=== PATIENT | female | born 1980 | race Caucasian/White ===

== ENCOUNTER → 2016-11-12 | Outpatient (CLI) | payer BC ==
--- NOTE | 2016-11-12 10:25 | US ---
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 As you know she is a 36 year-old 4, para 2101. He r due date is 03/28/17 which is based on L/early u/s. Her current gestational age based on this datin g is 20 weeks 4 days. She was seen previously for prior . She reports normal NIPT/AFP in yo office. Number of fetuses: 1 Placental location: right lateral Cord Insertion: Central presentation: vertex Cervix: 3.9 cm MVP: 4.7 cm The adnexa were evaluated. No pathology was seen. Right ovary seen Left ovary seen Measurements: Biparietal diameter: 45 mm 21 weeks, 1 days Head circumference: 180 mm 20 weeks, 3 days Abdominal circumference: 149 mm 20 weeks, 2 days Femur length: 35 mm 21 weeks, 0 days Humerus length: 33 mm 21 weeks, 0 days Transcerebellar diameter: 22 mm 20 weeks, 4 days Average ultrasound age: 20 weeks, 5 days Estimated weight: 361 gm weight percentile: 44 % ANATOMY Upper extremities: Normal Lower extremities: Normal Supratentorial brain: Normal Lateral ventricle: 5.1 mm Posterior fossa: Normal Cisterna Magna: 2.8 mm Spine: Normal Nuchal fold: 4.5 mm Face: Normal nose, lip, profile, alveolar ridge Heart: Normal rate, rhythm, axis, 4 chamber view, LVOT, RVOT, IVS Stomach: Normal Diaphragm: Normal Umbilical cord insertion: Normal Right kidney: Normal Left kidney: Normal Bladder: Normal Number of cord vessels: Three. Impression: This is a 36 year-old 4, para 2101 at 20 weeks, 4 days gestation. 1. SIUP with biometry cw ga of 20 weeks. Nl MVP. No anatomic abnormalites noted. 2. AMA_ AMA - normal NIPT, I reviewed the detection rate and chromosomes for NIPT and the option of a mniocentesis as well. She declined amniocentesis today, understanding the limitations of NIPT and ult rasound in detection of aneuploidy and other syndromes. 3. Prior CMV affected fetus s/p TOP- no ultrasound concern for recurrence and no clinical symptoms, s he declined amnio for CMV today. We discussed a 30 week growth/reevaluation of anatomy. 4. Prior late gestation TOP and D&C for retained POC- we reviewed that the data of cervical insuffici ency in the setting is overall reassuring but given multiple recent procedures it would be reasonable for her to undergo cervical lengths at 22 and 24 weeks to ensure normal without need for cerclage. C ervix today was very reassuring. Thank you for allowing me to see your patient. Approximately 15 minutes was spent with the patient a nd 15 was spent discussing her issues. Shira Ware MD Diagnosis Division of Maternal Medicine Department of Obstetrics and Gynecology [facility]
--- NOTE | 2016-11-12 10:59 | US ---
OB Sonogram History: LILLIAM 03/28/2017, 20 weeks 4 days, check growth and anatomy, advanced maternal age Comparison: None Findings: There is a single viable intrauterine gestation in vertex presentation. The placenta is rig ht lateral without evidence of previa. The lower margin of the placenta is 6 cm above the internal os . The umbilical cord inserts normally into the placenta. The cervix is closed measuring 3.8 cm transa bdominally. There is a normal amount of amniotic fluid with the maximum pocket measuring 4.7 cm. Both maternal ovaries are visualized and appear normal. The intracranial contents, face and spine look normal. The heart is 4 chamber ed and has a rate of approximately beats per minute. The right and left ventricular outflow tracts an d interventricular septum look normal. Fluid is identified in the stomach and urinary reshma dder. The renal region looks normal. The umbilical cord has 3 vessels and a normal insertion si te. 4 extremities are visualized. BPD = 15 mm = 21 weeks 1 day head circumference = 180 mm = 20 weeks 3 days Abdominal circumference = 149 mm = 20 weeks 2 days Femur length = 35 mm = 21 weeks 0 days Humeral length = 33 mm = 21 weeks 0 days Cerebellar width = 22 mm = 20 weeks 4 days Cisterna magna = 2.8 mm Estimated weight = 361 g = 44 percentile Average gestational age by ultrasound = 20 weeks 5 days Ultrasound LILLIAM 03/27/2017 Impression: Size consistent with dates. The cervix is normal in length and closed. This report should be read in conjunction with a consultation by Dr. Shira Ware.
== END ==
LOC: FIMAGING 08:24
PROVIDERS: ATTEND Obstetrics & Gynecology
DX: O09.522 Supervision of elderly multigravida, second trimester (principal); Z3A.20 20 weeks gestation of pregnancy

== ENCOUNTER 2018-11-01 21:16 | Emergency (ER) | payer OTHER ==
[2018-11-01] MEDS ORDERED: NS 1,000 ML IV ONE (21:46)
[2018-11-01] MEDS ORDERED: ONDANSETRON 4 MG/2 ML VIAL IVP ONE (21:46)
[2018-11-01] MEDS ORDERED: FAMOTIDINE 20 MG/NACL 50 ML IV ONE (21:46)
[2018-11-01 21:48] LABS: PLATELET COUNT 257 10^3/uL (150-400)
[2018-11-01] MEDS ORDERED: PANTOPRAZOLE SODIUM 40 MG TAB PO ONE (22:55)
--- NOTE | 2018-11-01 22:59 | EDPHY ---
H & P Time Seen by Provider: 11/01/18 21:26 HPI/ROS: HPI Upper abdominal pain. Nausea. 38-year-old female by private vehicle with her friend. 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 She reports worsening mid epigastric pain with associated nausea since earlier this afternoon. The pain is described as a burning and cramping sensation in her epigastric area. She reports earlier in the week she had flu- like symptoms which consisted of fatigue some muscle aches and joint aches. She denies any vomiting. She denies any diarrhea. No bloody or melenic stool. She has not had this pain in the past. She does take NSAIDs, ibuprofen on a fairly regular basis. ROS: Constitutional: No fever, no chills. No weakness. Respiratory: No cough. No shortness of breath. Cardiac: No chest pain, no palpitations. Gastrointestinal: As above, no vomiting, no diarrhea. Genitourinary: No hematuria. No dysuria or increased frequency with urination. Musculoskeletal: No back pain. No neck pain. As above. Skin: No rashes. Neurological: No headache. No focal weakness or altered sensation. Past medical history: No significant past medical history. No prescription medications. Social history: Nonsmoker. No alcohol. She is here with her friend who is an internal medicine veterinary specialist. As above. Physical Exam: General Appearance: Alert, she is not distressed. This patient is responding to questions appropriately and in full sentences. This patient appears well- hydrated and well-nourished. Eyes: Pupils equal and round no pallor or injection. No lid edema, erythema or injection. Respiratory: There are no retractions, lungs are clear to auscultation with good air movement bilaterally. Cardiovascular: Regular rate and rhythm. No murmur. Gastrointestinal: Abdomen is soft with vague epigastric tenderness on palpation , no masses, bowel sounds normal. No focal tenderness at McBurney's point. No Chadwick sign. Neurological: Motor sensory function is grossly intact. Cranial nerves are normal. Gait is normal. Skin: Warm and dry, no rashes. Musculoskeletal: No CVA tenderness on palpation bilaterally. Extremities are symmetrical. All joints range without pain or impingement. Psychiatric: No agitation. No depression. Database: EKG: Imaging: Right upper quadrant ultrasound: This is a normal study. The liver, ductal system, gallbladder all normal. The aorta is normal. The pancreas is normal. Results were discussed with staff radiologist Dr. Deny Aguayo. Procedures: Emergency department course: Triage vital signs reviewed and are normal. After my evaluation I did discuss pain medication with the patient. She does not want this at this time. She was given 20 mg of IV Pepcid and 4 mg of IV Zofran. 10:50 p.m., the patient was re-evaluated, she is feeling much better at this time. Results of her diagnostic workup in the emergency department were discussed with her and her friend. Repeat abdominal exam she is soft with mild epigastric tenderness on palpation. I discussed CT imaging as well as further observation in the emergency department. She does not want to do this at this time. She feels comfortable going home with her friend. I feel this is reasonable. She was given 40 mg of oral Protonix. I will prescribe her this medication. I will also send her home with a take-home pack of Vicodin. She likely will not use this but for reassurance will have it. I have instructed her not to take NSAIDs anymore. She will follow up with her primary care physician early this week for re-evaluation. Return to emergency department precautions were reviewed with her thoroughly. All of her questions were answered. She was discharged from the emergency department in good condition with her friend. Differential Diagnosis: The differential diagnosis on this patient includes but is not limited to gastritis. Pancreatitis, aortic aneurysm/dissection, cholecystitis, biliary colic, perforated peptic ulcer, acute coronary syndrome unlikely. This represents a partial list of diagnoses considered. These considerations are based on history, physical exam, past history, reassessment and diagnostic testing. Smoking Status: Never smoked Constitutional: Initial Vital Signs Temperature (C) 36.7 C 11/01/18 21:20 Heart Rate 91 11/01/18 21:20 Respiratory Rate 16 11/01/18 21:20 Blood Pressure 111/69 11/01/18 21:20 O2 Sat (%) 94 11/01/18 21:20 O2 Delivery Mode Room Air Allergies/Adverse Reactions: No Known Allergies Allergy (Verified 11/01/18 21:23) Home Medications: Medication Instructions Recorded Pantoprazole Sodium [Protonix] 40 mg PO DAILY #30 tab 11/01/18 Medical Decision Making - Diagnostics Imaging Results: Imaging Impressions Abdomen Ultrasound 11/01/18 21:47 Impression: Negative right upper quadrant ultrasound. - Data Points Laboratory Results: Laboratory Results 11/01/18 21:40 11/01/18 21:40 11/01/18 11/01/18 11/01/18 22:06 21:50 21:40 WBC 7.52 10^3/uL 10^3/uL (3.80-9.50) RBC 4.79 10^6/uL 10^6/uL (4.18-5.33) Hgb 14.5 g/dL g/dL (12.6-16.3) Hct 43.8 % % (38.0-47.0) MCV 91.4 fL fL (81.5-99.8) MCH 30.3 pg pg (27.9-34.1) MCHC 33.1 g/dL g/dL (32.4-36.7) RDW 12.7 % % (11.5-15.2) Plt Count 257 10^3/uL 10^3/uL (150-400) MPV 9.2 fL fL (8.7-11.7) Neut % (Auto) 66.2 % % (39.3-74.2) Lymph % (Auto) 24.6 % % (15.0-45.0) Casey % (Auto) 7.6 % % (4.5-13.0) Eos % (Auto) 1.2 % % (0.6-7.6) Baso % (Auto) 0.1 % L % (0.3-1.7) Nucleat RBC Rel Count 0.0 % % (0.0-0.2) Absolute Neuts (auto) 4.98 10^3/uL 10^3/uL (1.70-6.50) Absolute Lymphs (auto) 1.85 10^3/uL 10^3/uL (1.00-3.00) Absolute Monos (auto) 0.57 10^3/uL 10^3/uL (0.30-0.80) Absolute Eos (auto) 0.09 10^3/uL 10^3/uL (0.03-0.40) Absolute Basos (auto) 0.01 10^3/uL L 10^3/uL (0.02-0.10) Absolute Nucleated RBC 0.00 10^3/uL 10^3/uL (0-0.01) Immature Gran % 0.3 % % (0.0-1.1) Immature Gran # 0.02 10^3/uL 10^3/uL (0.00-0.10) Sodium Potassium Chloride Carbon Dioxide Anion Gap BUN Creatinine Estimated GFR Glucose Calcium Total Bilirubin Conjugated Bilirubin Unconjugated Bilirubin AST ALT Alkaline Phosphatase Total Protein Albumin Lipase Beta HCG, Qual NEGATIVE Urine Color Urine Appearance Urine pH Ur Specific [place] Urine Protein Urine Ketones Urine Blood Urine Nitrate Urine Bilirubin Urine Urobilinogen Ur Leukocyte Esterase Urine RBC 1-3 /hpf /hpf (0-3) Urine WBC NONE SEEN /hpf /hpf (0-3) Ur Epithelial Cells TRACE /lpf /lpf (NONE-1+) Amorphous Sediment PRESENT /hpf /hpf (NONE-1+) Urine Mucus 1+ /lpf /lpf (NONE-1+) Urine Glucose 11/01/18 11/01/18 21:40 21:32 WBC RBC Hgb Hct MCV MCH MCHC RDW Plt Count MPV Neut % (Auto) Lymph % (Auto) Casey % (Auto) Eos % (Auto) Baso % (Auto) Nucleat RBC Rel Count Absolute Neuts (auto) Absolute Lymphs (auto) Absolute Monos (auto) Absolute Eos (auto) Absolute Basos (auto) Absolute Nucleated RBC Immature Gran % Immature Gran # Sodium 138 mEq/L mEq/L (135-145) Potassium 3.9 mEq/L mEq/L (3.5-5.2) Chloride 106 mEq/L mEq/L (97-110) Carbon Dioxide 23 mEq/l mEq/l (22-31) Anion Gap 9 mEq/L mEq/L (6-14) BUN 14 mg/dL mg/dL (7-23) Creatinine 0.6 mg/dL mg/dL (0.6-1.0) Estimated GFR > 60 Glucose 113 mg/dL H mg/dL (70-100) Calcium 8.7 mg/dL mg/dL (8.5-10.4) Total Bilirubin 0.8 mg/dL mg/dL (0.1-1.4) Conjugated Bilirubin 0.2 mg/dL mg/dL (0.0-0.5) Unconjugated Bilirubin 0.6 mg/dL mg/dL (0.0-1.1) AST 28 IU/L IU/L (14-46) ALT 25 IU/L IU/L (9-52) Alkaline Phosphatase 71 IU/L IU/L (38-126) Total Protein 7.5 g/dL g/dL (6.3-8.2) Albumin 4.2 g/dL g/dL (3.5-5.0) Lipase 67 IU/L IU/L (23-300) Beta HCG, Qual Urine Color YELLOW Urine Appearance MODERATELY TURBID Urine pH 5.0 (5.0-7.5) Ur Specific [place] 1.033 H (1.002-1.030) Urine Protein NEGATIVE (NEGATIVE) Urine Ketones NEGATIVE (NEGATIVE) Urine Blood NEGATIVE (NEGATIVE) Urine Nitrate NEGATIVE (NEGATIVE) Urine Bilirubin NEGATIVE (NEGATIVE) Urine Urobilinogen NEGATIVE EU EU (0.2-1.0) Ur Leukocyte Esterase NEGATIVE (NEGATIVE) Urine RBC Urine WBC Ur Epithelial Cells Amorphous Sediment Urine Mucus Urine Glucose NEGATIVE (NEGATIVE) Medications Given: Discontinued Medications Sodium Chloride (Ns) 1,000 mls @ 0 mls/hr IV EDNOW ONE; Wide Open PRN Reason: Protocol Stop: 11/01/18 21:47 Last Admin: 11/01/18 22:04 Dose: 1,000 mls Famotidine/Sodium Chloride (Pepcid 20 Mg (Premix)) 50 mls @ 200 mls/hr IV EDNOW ONE Stop: 11/01/18 22:00 Last Admin: 11/01/18 22:04 Dose: 50 mls Ondansetron HCl (Zofran) 4 mg IVP EDNOW ONE Stop: 11/01/18 21:47 Last Admin: 11/01/18 22:05 Dose: 4 mg Departure - Departure Disposition: Home, Routine, Self-Care Clinical Impression: Epigastric abdominal pain Condition: Good Instructions: Acute Abdominal Pain (ED) Additional Instructions: Read and follow provided instructions. Follow-up with your primary care physician in 1-2 days for re-evaluation as discussed. Consider H pylori testing and gastroenterology consultation as discussed. Take medication as prescribed. Narcotic pain medication: 1-2 every 4-6 hours as needed for pain. Do not drive while on this medication. Return to the emergency department for worsening abdominal pain, vomiting, fever , black or bloody stool or other serious concerns. Referrals: Emilia Stewart MD [Primary Care Provider] - As per Instructions Prescriptions: Pantoprazole Sodium [Protonix] 40 mg PO DAILY #30 tab
[2018-11-01] MEDS ORDERED: HYDROCOD/APAP 5/325 PREPACK#6 BTL TAKEHOME ONE (23:06)
[2018-11-01 23:22] VITALS: BP 103/74
== END 2018-11-01 23:22 | disposition home or self-care (01) ==
DX: R10.13 Epigastric pain (principal); R11.0 Nausea
CPT/HCPCS: 96374; J2405